=== PATIENT | female | born 1980 | race Caucasian/White ===

== ENCOUNTER 2016-10-03 12:39 | Outpatient (CLI) | payer OTHER ==
[~2016-10-03 12:39] MED LIST: NOVOLIN N100 UNITS/ SC
[2016-10-03 12:56] VITALS: BP 145/78
[2016-10-03 13:38] VITALS: BP 131/64
[2016-10-03 15:12] VITALS: BP 135/65
[2016-10-03 16:28] VITALS: BP 137/69
[2016-10-03 17:00] VITALS: BP 139/75
== END 2016-10-03 18:05 | disposition short-term general hospital (02) ==
LOC: LDRP-OP 12:39 → 2WEST 12:40 → LDRP-OP 12-25 12:59
DX: O35.8XX0 Maternal care for other (suspected) fetal abnormality and damage, not applicable or unspecified (principal); O16.3 Unspecified maternal hypertension, third trimester; Z3A.33 33 weeks gestation of pregnancy; E66.01 Morbid (severe) obesity due to excess calories; O99.89 Other specified diseases and conditions complicating pregnancy, childbirth and the puerperium; R73.03 Prediabetes; K21.9 Gastro-esophageal reflux disease without esophagitis; G47.30 Sleep apnea, unspecified; O99.333 Smoking (tobacco) complicating pregnancy, third trimester; F17.200 Nicotine dependence, unspecified, uncomplicated; O09.33 Supervision of pregnancy with insufficient antenatal care, third trimester; O09.523 Supervision of elderly multigravida, third trimester
CPT/HCPCS: 59025; 76818; G0378; J0702; J3475; J7120